=== PATIENT | female | born 1940 | race Caucasian/White ===

== ENCOUNTER 2016-10-10 13:31 | Inpatient (IN) | payer MEDICARE ==
[2016-10-10 13:56] VITALS: BP 134/81
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
[2016-10-10 15:04] LABS: % BASOPHILS 0.8 % (0.0-2.0); % EOSINOPHILS 2.2 % (0.0-5.0); % LYMPHOCYTES 16.2 % (20.0-50.0); % MONOCYTES 9.3 % (2.0-10.0); % NEUTROPHILS 71.5 % (40.0-80.0); HEMOGLOBIN 9.9 gm/dL (11.7-16.1); MEAN CELL VOLUME 78.2 fl (81-100); MEAN CORPUSCULAR HEMOGLOBIN 26.7 pg (27.0-31.0); MEAN CORPUSCULAR HGB CONC 34.1 pg (28.0-36.0); MEAN PLATELET VOLUME 8.6 fl; NEUTROPHILE ABSOLUTE 5.5 Th/cmm (1.8-8.0); RED BLOOD COUNT 3.72 Mil/cmm (3.80-5.20); RED CELL DISTRIBUTION WIDTH 13.5 % (11.5-20.0)
[2016-10-10 15:09] LABS: HEMATOCRIT 29.1 % (35.0-45.0); PLATELET COUNT 277 Th/cmm (150-400); WHITE BLOOD COUNT 7.8 Th/cmm (4.8-10.8)
[2016-10-10 15:23] LABS: ALB/GLOB RATIO 1.3 (1.0-1.8); ALKALINE PHOSPHATASE 75 U/L (34-104); ANION GAP 6.7 (7.0-16.0); BILIRUBIN,TOTAL 0.2 mg/dL (0.3-1.0); BUN - UREA NITROGEN 25 mg/dL (7-25); BUN/CREATININE RATIO 20.8; CALCIUM SERUM 8.7 mg/dL (8.6-10.3); CARBON DIOXIDE 28.2 mEq/L (21.0-31.0); CHLORIDE 110 mEq/L (98-107); CHOLESTEROL 149 mg/dL (<200); CREATININE - SERUM 1.2 mg/dL (0.6-1.2); GLUCOSE 95 mg/dL (70-105); POTASSIUM SERUM 3.9 mEq/L (3.5-5.1); SGOT 20 U/L (13-39); SGPT/ALT 21 U/L (7-52); SODIUM SERUM 141 mEq/L (136-145); TRIGLYCERIDES 145 mg/dL (<150)
[2016-10-10 15:37] LABS: URINE BILIRUBIN NEGATIVE (NEGATIVE); URINE BLOOD TRACE (NEGATIVE); URINE COLOR YELLOW; URINE GLUCOSE (UA) NEGATIVE (NEGATIVE); URINE KETONE NEGATIVE (NEGATIVE)
[2016-10-10 15:38] LABS: URINE PH 5.5; URINE PROTEIN NEGATIVE (NEGATIVE); URINE UROBILINOGEN 0.2 E.U./dL (0.2 - 1.0)
[2016-10-10 15:39] LABS: URINE BACTERIA NONE SEEN /hpf (NONE SEEN); URINE EPITHELIAL CELLS NONE SEEN /lpf (FEW); URINE RBC NONE SEEN /hpf (0-5); URINE WBC NONE SEEN /hpf (0-5)
[2016-10-10 15:41] LABS: ACETAMINOPHEN < 10.0 ug/mL (10.0-30.0)
[2016-10-10 15:48] LABS: AMPHETAMINE URINE NEGATIVE (NEGATIVE); BARBITURATES URINE NEGATIVE (NEGATIVE)
[2016-10-11 16:07] LABS: HEP B CORE IGM Negative (Negative); HEP C ANTIBODY <0.1 s/co ratio (0.0-0.9)
[2016-10-11] MEDS ORDERED: Sodium Chloride 0.9% 1,000 ML IV SCH (21:23)
[2016-10-11] MEDS ORDERED: Hydrocodone/APAP 5mg/325mg Tab PO ONE (21:35)
[2016-10-11 22:00] LABS: ALB/GLOB RATIO 1.2 (1.0-1.8); ALKALINE PHOSPHATASE 84 U/L (34-104); ANION GAP 6.7 (7.0-16.0); BILIRUBIN,TOTAL 0.3 mg/dL (0.3-1.0); BUN - UREA NITROGEN 27 mg/dL (7-25); BUN/CREATININE RATIO 15.9; CALCIUM SERUM 9.4 mg/dL (8.6-10.3); CARBON DIOXIDE 30.3 mEq/L (21.0-31.0); CHLORIDE 107 mEq/L (98-107); CHOLESTEROL 173 mg/dL (<200); CREATININE - SERUM 1.7 mg/dL (0.6-1.2); GLUCOSE 107 mg/dL (70-105); MAGNESIUM 2.5 mg/dL (1.9-2.7); SGOT 19 U/L (13-39); SGPT/ALT 21 U/L (7-52); SODIUM SERUM 140 mEq/L (136-145); TRIGLYCERIDES 135 mg/dL (<150)
[2016-10-11] MEDS ORDERED: oxyCODONE 5 mg IR Tab PO PRN (23:04)
[2016-10-12] MEDS: Dicyclomine 10 mg Cap PO SCH ×2 (08:29→16:42)
[2016-10-12] MEDS ORDERED: Levothyroxine 0.1 Mg Tab PO SCH (08:45)
[2016-10-12] MEDS ORDERED: Pantoprazole 40 mg EC Tab PO SCH (09:00)
[2016-10-12] MEDS ORDERED: LEVOTHYROXINE SODIUM 137 MCG PO SCH (09:00)
--- NOTE | 2016-10-12 10:26 | Diagnostic Imaging Report ---
CHEST X-RAY: AP view INDICATION: Shortness of breath, follow up COMPARISON: Chest x-ray 11/01/2015 FINDINGS: Hyperinflated lungs are seen with COPD changes. No focal consolidation or effusions. Heart size normal. Atherosclerosis is noted. Degenerative changes of the spine are noted. 2 cm radiodensity seen projecting along the right shoulder region. IMPRESSION: Hyperinflated lungs with COPD changes. No focal consolidation identified. Atherosclerotic vascular disease. 2 cm radiodensity, likely external material and probably clothing material along the right shoulder region. Please correlate clinically.
--- NOTE | 2016-10-12 12:35 | History & Physical ---
CHIEF COMPLAINT: Acute psychosis, confusion, increased anxiety. HISTORY OF PRESENT ILLNESS: This is a 76-year-old female with history of acid reflux disease/peptic ulcer disease, fibromyalgia, irritable bowel syndrome, anemia who was brought in to the ER for acute psychosis. Apparently, she has been under a lot of stress secondary to her son passing away about a year ago and it appears that there are also issues with her other family members including her and her 2 daughters. She was brought in by adventism members. Given her symptoms, is awaiting to be admitted to [facility]; however, beds were not available and now she has been admitted to the medical/surgical floor for further management and care. She currently denies any symptomatology except for the chronic pain, which is secondary to fibromyalgia. PAST MEDICAL HISTORY: As noted above and hypothyroidism. PAST SURGICAL HISTORY: Denies. SOCIAL HISTORY: Denies any tobacco, ETOH or illicit drug usage. ALLERGIES: NKDA. OUTPATIENT MEDICATIONS: Flexeril 10 b.i.d., Bentyl 10 mg b.i.d., Lasix 20 daily, levothyroxine 137 mcg daily, oxycodone 10 mg q. 8 p.r.n. for pain, Protonix 40 every day, ranitidine 150 q.p.m., Ambien 5 mg at bedtime, clonazepam 1 mg b.i.d. and 2 mg at bedtime, Atarax 25 mg once or twice a day. REVIEW OF SYSTEMS: CONSTITUTIONAL: She denies any fever or chills. She does report some weight loss over the last few months, unable to quantify. CARDIAC: No chest pain or palpitations. PULMONARY: No cough or phlegm production. GASTROINTESTINAL: Currently, no abdominal pain, no GI symptomatology. No GERD symptoms. GENITOURINARY: No bladder habit changes. NEUROLOGIC: Denies any headaches, any changes in vision, any syncope. PHYSICAL EXAMINATION: VITAL SIGNS: T-max is 99.1, pulse 80, BP 137/79, respirations 18-19, satting 97-98% on 2 liters. GENERAL: She is a well-developed, thin female. She is awake, mod disoriented, but able to answer very simple questions appropriately, although she is rambling and at times tangential. HEAD AND NECK: Normocephalic, atraumatic. Pupils reactive to light. Extraocular movements are intact. Oropharynx moist and clear. CARDIOVASCULAR: Regular rate and rhythm without any murmurs. LUNGS: Clear to auscultation bilaterally. ABDOMEN: Soft, supple, nontender, nondistended, normoactive bowel sounds. EXTREMITIES: Lower extremity, no edema, clubbing or cyanosis. NEUROLOGICAL: Grossly nonfocal. Cranial nerves 2-12 are within normal limits. LABORATORY DATA: White count 7.8, H and H 9/29, platelet count of 277. Sodium 141, potassium 3.9, chloride 110, CO2 28, BUN 25, creatinine 1.2, glucose 95. LFTs were essentially within normal limits. LDL 64, HDL 70 and TSH 0.31. UA was essentially within normal limits. U-tox was within normal limits. DIAGNOSTICS: EKG shows sinus rhythm at a rate of 82, no ST elevations or depressions. IMPRESSION: 1. Acute psychosis/confusion. 2. History of fibromyalgia with chronic pain syndrome. 3. History of acid reflux disease, currently stable. 4. History of irritable bowel syndrome, currently stable. 5. Anemia, uncertain. 6. History of hypothyroidism with a low TSH. 7. Mild azotemia. PLAN: The patient has been admitted to the medical floor with a 1:1 sitter. Given her possible dehydration and azotemia, I have started her on IV fluids. The patient will be kept on other medications as scheduled. Given lower TSH level, the patient's Synthroid will be lower to 100 mcg every day. Morgan magui has been asked for further management and care. JOB# [id number] [facility]
--- NOTE | 2016-10-12 13:52 | Admit Criteria Form ---
Admit Criteria Forms - Admit Criteria Diagnosis: DEHYDRATION Clinical Indications for Admission to Inpatient Care (Place 'X' for any and all applicable criteria): Admission is indicated for ANY ONE of the following (1)(2)(3)(4)(5): [X]I. Inpatient admission required rather than observation care (see Dehydration: Observation Care guideline as appropriate) because of ANY ONE of the following: [ ]a) Vomiting that is severe or persistent [ ]b) Severe electrolyte abnormalities requiring inpatient care [ ]c) Hemodynamic instability [ ]d) IV fluid to replace significant ongoing losses (greater than 3 L/m2 per day (10) (11) [ ]e) Parenteral nutrition regimen that must be implemented on inpatient basis [X]f) Other condition,treatment or monitoring requiring inpatient admission [ ]II. Serious cause for dehydration requiring acute hospitalization (eg, bowel obstruction, increased intracranial pressure, infectious cause) Extended stay beyond goal length of stay may be needed for(1)(3 )(4)(17): [ ]a) Chronic severe dehydration [ ]b) Persistent vital sign changes, severe electrolyte imbalance, or diagnosed cause of dehydration that requires continued hospitalization (eg, bowel obstruction, increased intracranial pressure) [ ]c) Older patients (65 years or older) [ ]d) Severe comorbid illness (eg, renal failure, heart failure, poorly controlled diabetes) The original [employer] content created by [employer] has been revised. The portions of the content which have been revised are identified through the use of italic text or in bold, and [facility] has neither reviewed nor approved the modified material. All other unmodified content is copyright [facility] [facility]. Please see references footnoted in the original [employer] [facility] edition 2016 Admit Criteria Met?: Yes
[2016-10-12] MEDS ORDERED: VTE Chemical Prophylaxis Screen/Admission MC PRN (16:49)
--- NOTE | 2016-10-16 21:41 | Discharge Summary ---
ADMITTING DIAGNOSES: Acute psychosis, confusion, anxiety. SECONDARY DIAGNOSES: Include history of hypothyroidism, chronic pain syndrome, fibromyalgia, history of irritable bowel syndrome, and history of chronic anemia. DISCHARGE DIAGNOSES: Acute psychosis, confusion, anxiety. RN [facility]: Dr. Quiñones, Psychiatry. MAJOR PROCEDURES: There were no major procedures done during this admission. TRANSFER/DISCHARGE MEDICATIONS: Flexeril 10 b.i.d., Bentyl 10 mg b.i.d., Lasix 20 daily, levothyroxine 137 mcg q.a.m., oxycodone 10 mg q.8 hours p.r.n. for severe pain, Protonix 40 q.a.m., ranitidine 150 q.p.m., ambien 5 mg at bedtime, Klonopin 1 mg b.i.d. and 2 mg at bedtime, atarax 25 mg p.r.n. for itching. BRIEF HOSPITAL COURSE: A 76-year-old lady with a past medical history as delineated above who apparently has been having stress-related psychosis at home to the point that she was brought in by friends to get admitted to [facility]. She was initially admitted to the medical floor, where she was monitored and remained stable throughout her hospital stay. She was evaluated by Psychiatry and was transferred to [facility] the next day. Medically speaking, she remains stable with normal vital signs and stable labs. Her initial thyroid screen showed a low TSH; therefore, her thyroid supplements were adjusted. CONDITION ON TRANSFER: Stable. DISPOSITION: The patient was transferred to [facility] under Dr. Quiñones's service. JOB# [id number] [facility]
== END 2016-10-12 17:39 | disposition short-term general hospital (02) | DRG 641 ==
LOC: ER 13:31 → MSI 10-11 21:40
PROVIDERS: ADMIT Internal Medicine; ATTEND Internal Medicine
DX: E86.0 Dehydration (principal); D64.9 Anemia, unspecified; E03.9 Hypothyroidism, unspecified; M79.7 Fibromyalgia; K21.9 Gastro-esophageal reflux disease without esophagitis; K58.9 Irritable bowel syndrome, unspecified; G89.4 Chronic pain syndrome; F29 Unspecified psychosis not due to a substance or known physiological condition
CPT/HCPCS: 36415-UA; 71010-TC; 80053-TC; 80061-TC; 80074-90; 80320-TC; 80329-TC; 81001-TC; 83735-TC; 84443-TC; 85025-TC; 86592-TC; 93005; J7030; Z7610

== ENCOUNTER 2016-10-12 17:40 | Inpatient (IN) | payer MEDICARE ==
[2016-10-12 19:19] VITALS: BP 144/80
--- NOTE | 2016-10-12 23:35 | Consultation ---
IDENTIFYING INFORMATION: The patient is 76-year-old female. REASON FOR CONSULTATION AND HISTORY OF PRESENT ILLNESS: The patient was admitted on the hold and trying to find a hold. The ____ tell me the patient is on a 5150 hold. The hold is for grave disability. It states that the patient stated that she is homeless, she was staying in a hotel previously, run out of money and now plans to live on the streets; however, the patient cannot verbalize a plan for her safety or hard to obtain food, clothing, or senior living. When I talked to her, she was a reasonable historian. The patient reports that she has not seen her . She left pug-eek-u-half weeks ago. She report previously she was at ____ [facility] on a hold again, she has shown me a list of her medication included the Klonopin, hydroxyzine. The patient reported that she sleeps well, eats well. She denies any current intent to harm herself or anybody. Denies any auditory or visual hallucination. She was paranoid towards her , she said her adopted daughter is trying to take over their house and that she is the one who reported that the patient was trying to harm her according to Emergency Room notes that the patient may have tried to harm her , the patient denies that. She denies any intent to harm herself or anybody. PAST PSYCHIATRIC HISTORY: The patient reports she was seen by a psychiatrist before, she is on Klonopin, hydroxyzine and Ambien. The patient reports that she never tried to harm herself or anybody, never been hospitalized. She report that she was brought here by zoroastrianism people, she is not sure what they said, but she report that she loves the zoroastrianism that is why she is there. MEDICAL HISTORY: The patient has hypothyroidism. She has chronic pain. ALLERGIES: SHE SAID SHE IS ALLERGIC TO ALL PAIN MEDICATION EXCEPT HYDROCODONE. FAMILY AND SOCIAL HISTORY: The patient was ____40 years, she have one of the biologic son that nam-qyb-y-half year ago for an overdose on his gout medication. She has 3 adopted children. 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 She reports her is 76 years of age. She is not happily . He refused to take his ADD medication and has been causing problem. She reports her adopted daughter trying to take over their house. I am not sure if how sure she is of this information. She denies any family psychiatric disorder or substance abuse. MENTAL STATUS EXAMINATION: The patient is homeless, admits that the patient was appropriately dressed, not well groomed. Her mood is depressed. Affect is constricted. Her thoughts are a little bit at times concrete. She was alert, oriented to place, person, and time, but not to situation. She is unable to explain to me why they put her on a hold. Her long-term memory is good for her age. ____ at the beginning, she told me she was 75, but after she told me the date and her date of , she was able to figure out her age. She seems to have average intelligence. Her long-term is good for her age. Recent memory is poor, cannot remember events after coming here. Her insight and judgment is questionable. IMPRESSION: AXIS I: Rule out psychosis, not otherwise specified versus depression with psychosis, also cognitive disorder, not otherwise specified. PLAN: I would recommend the patient needs to be transferred to a psych unit when medically cleared. To further evaluate the patient to assess her medication. Thank you very much for allowing me to participate in the care of this most interesting lady. JOB# [id number]
[2016-10-13] MEDS: Levothyroxine 0.1 Mg Tab PO SCH (06:39)
[2016-10-13] MEDS: Dicyclomine 10 mg Cap PO SCH ×2 (09:40→16:56)
[2016-10-13] MEDS: Pantoprazole 40 mg EC Tab PO SCH (09:40)
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
--- NOTE | 2016-10-14 00:04 | Consultation ---
INTERNAL MEDICINE CONSULTATION ATTENDING PHYSICIAN: Lissa Quiñones M.D. DENTAL NURSE: Alex Syed M.D. HISTORY OF PRESENT ILLNESS: This is a 76-year-old female with past medical history of psychosis, who was transferred from [facility] to [facility] for continuation of psychiatric management. The patient was admitted at [facility] for severe dehydration. She was started on IV fluids. Her condition improved and she was transferred to [facility]. PAST MEDICAL HISTORY: 1. Psychosis. 2. Hypothyroidism. 3. Gastritis. 4. Chronic pain syndrome. 5. Anxiety/depression. CURRENT MEDICATIONS: She is currently on acetaminophen, cyclobenzaprine, dicyclomine, famotidine, furosemide, levothyroxine, lorazepam, pantoprazole, zolpidem, clonazepam, hydroxyzine, oxycodone. ALLERGIES: No known drug allergies. SOCIAL AND FAMILY HISTORY: I was not able to obtain directly from the patient because of her depressed mental status. REVIEW OF SYSTEMS: Again, I was not able to obtain from the patient. However, per transfer notes, CONSTITUTIONAL: Appetite had been poor, no fever, no chills. HEENT: No mention of headaches, no dizziness. CARDIORESPIRATORY: No mention of chest pain, palpitations, diaphoresis, cough. No shortness of breath. GASTROINTESTINAL: She has a history of gastritis. At this point, no nausea, vomiting, abdominal pain or cramping, hematemesis, melena, hematochezia, no diarrhea. ENDOCRINE: No history of diabetes, but has hypothyroidism. MUSCULOSKELETAL: Multiple joint arthralgias. GENITOURINARY: No history of kidney failure. HEMATOLOGIC: No history of anemia. NEUROPSYCHIATRIC: History of acute decompensation of psychosis, anxiety as well as depression. PHYSICAL EXAMINATION: NEUROLOGIC: The patient is drowsy, but arousable, not in any form of distress. VITAL SIGNS: Blood pressure is 110/70, pulse 86, temperature 97.8 degrees. SKIN: Good turgor, warm, no rash, no jaundice appreciated. HEENT: Head: Normocephalic, atraumatic. Eyes: Extraocular muscles intact. Pupils equal, round, reactive to light and accommodates. Anicteric sclerae. [place] conjunctivae. Nose: Midline nasal septum. Mouth: Dry mucosa with adequate dentition. NECK: Supple. No adenopathy, no thyromegaly, no bruits. Trachea palpated in the midline. CHEST AND CVS: S1, S2. No rub, murmur, no gallop appreciated. Point of maximal impulse is in fifth intercostal space, left midclavicular line. No abdominal or femoral bruits appreciated. LUNGS: Equal expansion. No use of accessory muscles. No supraclavicular retractions. Decreased breath sounds. Clear to auscultation without any wheeze. ABDOMEN: Flat, soft, positive for bowel sounds. No bruits either diastolic or systolic. RECTAL: The patient refused. GENITOURINARY: She also refused. MUSCULOSKELETAL: Unable to assess her range of motion. EXTREMITIES: No evidence of any edema, cyanosis or clubbing with palpable femoral, but unable to appreciate popliteal and dorsalis pedis pulses. NEUROLOGIC: As mentioned, the patient is somewhat drowsy at the present time, unable to follow my neuro commands, so I was unable to pursue further my neuro exam. LABORATORY DATA: No labs available. IMPRESSION: 1. Acute decompensation of psychosis. 2. Hypothyroidism. 3. Gastritis. 4. Chronic pain syndrome. 5. Anxiety/depression. PLAN: 1. Discontinue Lasix. The patient has recent history of dehydration. 2. Follow up electrolytes and TSH. 3. Continue on the psychiatric medications. Thank you, Dr. Quiñones, for this consult. I will follow the patient closely with you. JOB# [id number]
[2016-10-14] MEDS: Levothyroxine 0.1 Mg Tab PO SCH (06:45)
[2016-10-14 07:02] LABS: % MONOCYTES 10.6 % (2.0-10.0); % NEUTROPHILS 53.4 % (40.0-80.0); HEMATOCRIT 30.4 % (35.0-45.0); HEMOGLOBIN 10.3 gm/dL (11.7-16.1); MEAN CELL VOLUME 78.2 fl (81-100); MEAN CORPUSCULAR HEMOGLOBIN 26.5 pg (27.0-31.0); MEAN CORPUSCULAR HGB CONC 33.9 pg (28.0-36.0); MEAN PLATELET VOLUME 8.2 fl; NEUTROPHILE ABSOLUTE 3.8 Th/cmm (1.8-8.0); PLATELET COUNT 282 Th/cmm (150-400); RED BLOOD COUNT 3.89 Mil/cmm (3.80-5.20); RED CELL DISTRIBUTION WIDTH 13.3 % (11.5-20.0); WHITE BLOOD COUNT 7.2 Th/cmm (4.8-10.8)
[2016-10-14 07:14] LABS: ALB/GLOB RATIO 1.2 (1.0-1.8); ALKALINE PHOSPHATASE 65 U/L (34-104); BILIRUBIN,TOTAL 0.3 mg/dL (0.3-1.0); BUN - UREA NITROGEN 40 mg/dL (7-25); BUN/CREATININE RATIO 28.6; CALCIUM SERUM 9.1 mg/dL (8.6-10.3); CARBON DIOXIDE 30.7 mEq/L (21.0-31.0); CHLORIDE 104 mEq/L (98-107); CREATININE - SERUM 1.4 mg/dL (0.6-1.2); GLUCOSE 91 mg/dL (70-105); POTASSIUM SERUM 4.7 mEq/L (3.5-5.1); SGOT 11 U/L (13-39); SGPT/ALT 12 U/L (7-52); SODIUM SERUM 136 mEq/L (136-145)
[2016-10-14] MEDS: Pantoprazole 40 mg EC Tab PO SCH (08:36)
[2016-10-14] MEDS: Dicyclomine 10 mg Cap PO SCH ×2 (08:37→16:08)
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
[2016-10-15] MEDS: Levothyroxine 0.1 Mg Tab PO SCH (06:40)
[2016-10-15] MEDS: Pantoprazole 40 mg EC Tab PO SCH (08:21)
[2016-10-15] MEDS: Dicyclomine 10 mg Cap PO SCH ×2 (08:21→16:49)
[2016-10-15] MEDS ORDERED: Haloperidol Lactate 5 mg/mL 1mL Vial ONE (17:55)
[2016-10-15] MEDS ORDERED: Haloperidol Lactate 5 mg/mL 1mL Vial IM ONE (17:57)
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
[2016-10-16] MEDS: Levothyroxine 0.1 Mg Tab PO SCH (06:51)
[2016-10-16] MEDS: Pantoprazole 40 mg EC Tab PO SCH (08:21)
[2016-10-16] MEDS: Dicyclomine 10 mg Cap PO SCH ×2 (08:21→17:03)
--- NOTE | 2016-10-16 21:01 | Progress Notes ---
Case was discussed with staff of the patient, reviewed records. The patient so far has been easily agitated, trying to . She continues to be unpredictable and impulsive. She has very poor insight about the whole situation. I tapered off the Klonopin. I added the Neurontin yesterday to help with her anxiety and to make it easy to get to us. JOB# [id number]
[2016-10-17] MEDS: Levothyroxine 0.1 Mg Tab PO SCH (06:49)
[2016-10-17] MEDS: Dicyclomine 10 mg Cap PO SCH ×2 (08:43→16:09)
[2016-10-17] MEDS: Pantoprazole 40 mg EC Tab PO SCH (08:44)
--- NOTE | 2016-10-18 04:21 | Progress Notes ---
Case was discussed with staff of the patient, reviewed records. The patient is working with the staff on placement. I explained to the patient that she going to a motel does not seem to be a good choice, and then we need to think of something else. She has a lot of legal issues she is working on. She has been compliant with the medication with no side effects. She agreed finally to work to, maybe go, with a friend, however, also suggested nursing facility or assisted living. She is compliant with the medication with no side effects. We are trying to taper off the Klonopin and so far no side effects from the medication, no sedation, no nausea, and we will continue to work with the patient in group therapy, milieu therapy, and adjust medications as needed. JOB# [id number]
[2016-10-18 06:38] LABS: ANION GAP 4.8 (7.0-16.0); BUN - UREA NITROGEN 34 mg/dL (7-25); BUN/CREATININE RATIO 30.9; CARBON DIOXIDE 31.4 mEq/L (21.0-31.0); CHLORIDE 102 mEq/L (98-107); CREATININE - SERUM 1.1 mg/dL (0.6-1.2); GLUCOSE 92 mg/dL (70-105); MAGNESIUM 2.3 mg/dL (1.9-2.7); POTASSIUM SERUM 4.2 mEq/L (3.5-5.1); SODIUM SERUM 134 mEq/L (136-145)
[2016-10-18] MEDS: Levothyroxine 0.1 Mg Tab PO SCH (06:49)
[2016-10-18] MEDS: Dicyclomine 10 mg Cap PO SCH ×2 (09:12→16:23)
[2016-10-18] MEDS: Pantoprazole 40 mg EC Tab PO SCH (09:12)
--- NOTE | 2016-10-19 05:58 | Progress Notes ---
Case was discussed with staff of the patient, reviewed records. The patient apparently has been very disorganized with flight of ideas. Continues to be unable to make safe plan for self-care. Continues to be unpredictable and impulsive. She is unable to make definite plans for her self-care. I will be working on placement for her because she believes she can go and live in a motel; she did threaten her . I will be initiating Risperdal to help improve her thoughts and mood swings and irritability; discussed side effects. She is still at risk for discharge because of her unpredictable behavior, and we will continue to work with the patient in group therapy, milieu therapy, and adjust the medication as needed. [facility]# [id number]
[2016-10-19] MEDS: Levothyroxine 0.1 Mg Tab PO SCH (06:44)
[2016-10-19] MEDS: Dicyclomine 10 mg Cap PO SCH ×2 (09:30→16:58)
[2016-10-19] MEDS: Pantoprazole 40 mg EC Tab PO SCH (09:30)
--- NOTE | 2016-10-20 02:28 | Progress Notes ---
Case was discussed with staff of the patient, reviewed records. The patient continues to be disorganized, confused at times, very poor insight. Continues to be unpredictable, impulsive, needing redirection, and working on placement for this patient, so she is compliant with the medication with no side effects, no sedation, no nausea, no extrapyramidal symptoms. We will continue to work with the patient in group therapy, milieu therapy, and adjust medication as needed. JOB# [id number]
[2016-10-20] MEDS: Levothyroxine 0.1 Mg Tab PO SCH (06:52)
[2016-10-20] MEDS: Dicyclomine 10 mg Cap PO SCH ×2 (09:06→18:16)
[2016-10-20] MEDS: Pantoprazole 40 mg EC Tab PO SCH (09:07)
--- NOTE | 2016-10-20 20:44 | Progress Notes ---
Case was discussed with staff of the patient, reviewed records. The patient apparently wrote a letter. Apparently a few days ago, she asked to change doctor to Dr. Fernandez who the staff told me they gave him some letter and they asked him, however, he refused to accept the patient. The patient continues to be unpredictable and impulsive. She complained of soreness in her throat. I asked the staff to give her lozenges and to see if they could get the medical doctor to evaluate her and treat her and so far no side effects with the medication, no sedation, no nausea, and no extrapyramidal symptoms. We will continue to work with the patient in group therapy, milieu therapy, and adjust medications. I asked the staff to give her lozenges to help her with her throat. Her lab work showed low sodium level and high CO2, high BUN, and the rest within normal range. TSH within normal range. We will continue to work with the patient in group therapy, milieu therapy, and adjust medication as needed. JOB# [id number]
[2016-10-21] MEDS: Levothyroxine 0.1 Mg Tab PO SCH (06:47)
[2016-10-21] MEDS: Dicyclomine 10 mg Cap PO SCH ×2 (09:24→16:18)
[2016-10-21] MEDS: Pantoprazole 40 mg EC Tab PO SCH (09:24)
--- NOTE | 2016-10-22 03:25 | Progress Notes ---
Case discussed with staff of the patient. The patient is complaining of sore throat and she said she is supposed to be on antibiotics. She is still having difficulty with swallowing. She was started on Zithromax yesterday ____. She has been compliant with the medication with no side effects, no sedation, no nausea, no extrapyramidal symptoms. She continues to be somewhat disorganized, unpredictable, impulsive. I discussed with the patient that she could change her ____ at time and that we have asked Dr. Fernandez ____ to take care of her; however, I asked her to feel free to chose any other psychiatrists she wishes and working on placement for this patient as well and we will continue to observe the patient in group therapy, milieu therapy, adjust the medication as needed. JOB# [id number]
[2016-10-22] MEDS: Levothyroxine 0.1 Mg Tab PO SCH (06:37)
[2016-10-22] MEDS: Pantoprazole 40 mg EC Tab PO SCH (08:41)
[2016-10-22] MEDS: Dicyclomine 10 mg Cap PO SCH ×2 (08:41→16:25)
--- NOTE | 2016-10-23 01:42 | Progress Notes ---
Case was discussed with the staff of the patient, reviewed records. The patient is a bit calmer. I discussed again with her that she needs to realize that she does have a choice of her doctors, and since Dr. Fernandez refused to take care that she is free any choose any other doctors, she does not want me to be her psychiatrist and so far she has been more compliant with the medication with no side effects, still somewhat disorganized. I am sure she can make safe plan for self-care, but we are working on placement for this patient, so she can go to a safe place as I do not think she can manage on her own. She plans to go to a hotel, [employer] [address], and she does not have really that much money. This will run out in no time and then she will be homeless, and at this point no side effects with the medications, no sedation, no nausea, no extrapyramidal symptoms. The patient was started on antibiotic and she is on pain medication and no side effects with the medication, no sedation, no nausea, no extrapyramidal symptoms. I will be decreasing her Klonopin 0.25 mg twice a day and I do have her on Neurontin to make sure she can tolerate the withdrawal because I am not sure at her age I want her to be on a regular dose of benzodiazepine and we will continue to work with the patient In group therapy, milieu therapy, adjust medications as needed. JOB# [id number]
[2016-10-23] MEDS: Levothyroxine 0.1 Mg Tab PO SCH (06:36)
[2016-10-23] MEDS: Dicyclomine 10 mg Cap PO SCH ×2 (09:16→17:07)
[2016-10-23] MEDS: Pantoprazole 40 mg EC Tab PO SCH (09:17)
--- NOTE | 2016-10-23 20:16 | Progress Notes ---
Case was discussed with staff of the patient, reviewed records. The patient continues to work on her placement. Continues to be disorganized, impulsive, and unpredictable. Continues to need redirection. She has been compliant with the medication with no side effects, no sedation, no nausea, and no extrapyramidal symptoms. Continues with disorganized behavior, very poor insight, and unable to make a judgment. I will be increasing Risperdal to 1 mg twice a day. Also, I have been decreasing her Klonopin to 0.25 mg twice a day and so far no side effects, no sedation, no nausea, no extrapyramidal symptoms, and working on placement. We will continue to work with the patient in group therapy, milieu therapy, and adjust the medications as needed. JOB# [id number]
[2016-10-24] MEDS: Levothyroxine 0.1 Mg Tab PO SCH (06:37)
[2016-10-24] MEDS: Pantoprazole 40 mg EC Tab PO SCH (09:08)
[2016-10-24] MEDS: Dicyclomine 10 mg Cap PO SCH ×2 (13:41→17:59)
--- NOTE | 2016-10-25 01:35 | Progress Notes ---
Case was discussed with staff of the patient, reviewed records. The patient continues to be vague at times, disorganized, and internally preoccupied. She is not willing to work with the staff on placement. She said she will go to a friend. Then, one of the staff members is going to help her talk to one of her friends. She continues to be having ____ poor insight, but in general if we can find her a place, that will be safe. We can have her leave because her plans so far is unrealistic where she wants to go to a motel when she does not have any money. So, she will end up on the street and ____ exposing herself to danger. I will be changing her Klonopin to twice a day as needed and I discussed with the patient that this medication can be adjusted, and I will be increasing her Neurontin dose to 200 mg 3 times a day to help her with the detox process. We will continue to work with the patient in group therapy, milieu therapy, and adjust the medication as needed. JOB# [id number]
[2016-10-25] MEDS: Levothyroxine 0.1 Mg Tab PO SCH (06:37)
[2016-10-25] MEDS: Dicyclomine 10 mg Cap PO SCH ×2 (09:08→17:46)
[2016-10-25] MEDS: Pantoprazole 40 mg EC Tab PO SCH (09:09)
[2016-10-25] MEDS: Docusate Sodium/Senna Tab PO SCH ×2 (12:30→17:45)
--- NOTE | 2016-10-26 01:48 | Progress Notes ---
Case was discussed with staff of the patient and reviewed records. The patient is complaining of feeling shaky today, feeling weak, tired. I did take her off the clonidine yesterday and increased the Neurontin dose. So, I will be going down on the dose of gabapentin and the Risperdal. Also, the Neurontin dose will go down to as it was to 100 mg 3 times a day and so far I asked the staff to check her vital signs and I asked the patient to stay in bed and asked them to call the medical doctor to make sure to examine her and make sure she is okay and I will ____ in group therapy, milieu therapy and adjust medication as needed. JOB# [id number]
[2016-10-26] MEDS: Levothyroxine 0.1 Mg Tab PO SCH (06:39)
[2016-10-26] MEDS: Docusate Sodium/Senna Tab PO SCH ×2 (08:16→16:41)
[2016-10-26] MEDS: Dicyclomine 10 mg Cap PO SCH ×2 (08:16→16:41)
[2016-10-26] MEDS: Pantoprazole 40 mg EC Tab PO SCH (08:17)
--- NOTE | 2016-10-27 00:13 | Progress Notes ---
Case was discussed with staff of the patient, reviewed records. The patient is still in the process of trying to find her a place to go. Apparently, her friends who she gave the name for declined to have her. The patient continues to have poor insight, unable to participate, make safe plan for her self-care. Her plans are not making sense, she cannot be safe on the streets, in a hotel with friends who do not want her. She has been compliant with the medication. I did decrease the Risperdal and Neurontin dose by half and also took off the Klonopin and so far, no side effects with the medication, no sedation, no nausea. I will be making the Risperdal only at bedtime and we will continue to work with the patient in group therapy, milieu therapy, adjust medication as needed. JOB# [id number]
[2016-10-27] MEDS: Levothyroxine 0.1 Mg Tab PO SCH (06:41)
[2016-10-27] MEDS: Docusate Sodium/Senna Tab PO SCH ×2 (08:13→16:46)
[2016-10-27] MEDS: Dicyclomine 10 mg Cap PO SCH ×2 (08:13→16:45)
[2016-10-27] MEDS: Pantoprazole 40 mg EC Tab PO SCH (08:13)
--- NOTE | 2016-10-28 04:26 | Progress Notes ---
Covering for Dr. Quiñones. IDENTIFYING DATA: Overnight staff members reported that the patient overall continues to be easily agitated with very poor self care plan. Today, on [id number] evaluation, the patient is noted to be tearful, agitated, irritable, refusing to be interviewed and making hand gestures not to be interviewed due to the patient's agitated and aggressiveness and declined to be interviewed, unable to participate and engage ____ information that will facilitate her how to care for her self plan. MENTAL STATUS EXAMINATION: Tearful, withdrawn, sad and ____. ASSESSMENT AND PLAN: The patient is 76-year-old female who still continues to present disorganized, tearful and unable to make a clear plan on how to care for herself after-discharge plan. Therefore, will continue with the current primary psychiatrist treatment plan and goals to target the patient's severe symptoms. We will continue with the ____ lisinopril, risperidone 0.5 mg a day. [facility]# [id number]
[2016-10-28] MEDS: Levothyroxine 0.1 Mg Tab PO SCH (06:45)
[2016-10-28] MEDS: Pantoprazole 40 mg EC Tab PO SCH (09:29)
[2016-10-28] MEDS: Dicyclomine 10 mg Cap PO SCH ×2 (09:29→16:47)
[2016-10-28] MEDS: Docusate Sodium/Senna Tab PO SCH ×2 (09:30→16:42)
--- NOTE | 2016-10-29 01:55 | Progress Notes ---
SUBJECTIVE: The patient is seen. Chart reviewed. Discussed with staff. The patient is currently in the hospital, noted to be disorganized, gravely disabled, on [id number]. The patient remains agitated, irritable, poor self-care planning, poor self-care, resistant to care, noted to be demanding, depressed, med seeking. She is more linear at this time. States that she wants to go home; also states she has a daughter there; however, there are continued concerns about the patient's demeanor and her affect. ASSESSMENT: The patient remains somewhat tearful, upsets, but more linear. PLAN: We will continue to monitor, continue to adjust medications. The patient is not the best historian, but notes that she has a psychiatric history. She is somewhat guarded on exam. We will coordinate care with social work regarding safe discharge plan and good psychiatric followup. JOB# [id number] [facility]
[2016-10-29] MEDS: Levothyroxine 0.1 Mg Tab PO SCH (07:02)
[2016-10-29] MEDS: Dicyclomine 10 mg Cap PO SCH ×2 (09:30→17:15)
[2016-10-29] MEDS: Pantoprazole 40 mg EC Tab PO SCH (09:30)
[2016-10-29] MEDS: Docusate Sodium/Senna Tab PO SCH ×2 (09:31→17:18)
--- NOTE | 2016-10-29 23:41 | Progress Notes ---
Case was discussed with staff of the patient. The patient continues to minimize events led to her admission. She continues to be working with the staff. The staff is having hard time placing her. She has been compliant with the medications. She denies any current side effects. No sedation, no nausea, and no extrapyramidal symptoms. I did decrease the Risperdal because of the complaint. She continues to be disorganized. Continues to be agitated and irritable. However, she would not take the medication ____ increased dose. I am working on placement. We will continue to work with the patient in group therapy, milieu therapy, and adjust medication as needed. JOB# [id number]
[2016-10-30] MEDS: Levothyroxine 0.1 Mg Tab PO SCH (06:35)
[2016-10-30] MEDS: Pantoprazole 40 mg EC Tab PO SCH (09:08)
[2016-10-30] MEDS: Docusate Sodium/Senna Tab PO SCH ×2 (09:08→17:23)
[2016-10-30] MEDS: Dicyclomine 10 mg Cap PO SCH ×2 (09:08→17:23)
--- NOTE | 2016-10-31 01:24 | Progress Notes ---
Case was discussed with staff of the patient, reviewed records. The patient has been compliant with the medications; however, she has been at times paranoid. She believes some of the male peer has been coming to her bed. However, the staff reported that this did not happen and that they watched the room today well. They do not allow any male to go to females' room. The patient so far has been compliant with the medication with no side effects, no sedation, and no nausea. We are still working on placement for this patient and the field nurse case manager has 2 people. They are going to with the hope that she will be placed in a safe environment. I will continue to work with the patient in group therapy, milieu therapy, and adjust the medications as needed. JOB# [id number]
[2016-10-31] MEDS: Levothyroxine 0.1 Mg Tab PO SCH (06:43)
[2016-10-31] MEDS: Dicyclomine 10 mg Cap PO SCH ×2 (08:26→16:27)
[2016-10-31] MEDS: Pantoprazole 40 mg EC Tab PO SCH (08:26)
[2016-10-31] MEDS: Docusate Sodium/Senna Tab PO SCH ×2 (08:26→16:27)
--- NOTE | 2016-11-01 03:56 | Progress Notes ---
Case was discussed with staff of the patient, reviewed records. We will continue to work on placement for this patient as she does not have any place to go and it has been hard to place her because the patient has been ____. Also, they are working on making sure she is in a safe place, but she is compliant now with the medications with no side effects. She is not paranoid. She is sleeping better, eating better. No side effects with the medications, no sedation, no nausea, no extrapyramidal symptoms, and she responded better to redirection. We will continue to work with the patient in group therapy, milieu therapy, adjust medications as needed. JOB# [id number]
[2016-11-01] MEDS: Levothyroxine 0.1 Mg Tab PO SCH (06:41)
[2016-11-01] MEDS: Docusate Sodium/Senna Tab PO SCH (08:12)
[2016-11-01] MEDS: Dicyclomine 10 mg Cap PO SCH (08:12)
[2016-11-01] MEDS: Pantoprazole 40 mg EC Tab PO SCH (08:12)
--- NOTE | 2016-11-01 22:41 | Discharge Summary ---
IDENTIFYING INFORMATION: The patient is a 76-year-old female. REASON FOR THE ADMISSION: The patient was transferred from the medical floor. I saw her there. She was admitted on a hold. The hold was for grave disability. She was homeless. She was staying in a hotel, she ran out of money, planned to live on the streets; however, the patient cannot verbalize the plan of safety, was hard to obtain food or closing or senior care. When I talked to her, she was a reasonable historian. She reported that she has not seen her . She left home 1-1/2 weeks prior. She apparently threatened her . She was at [facility] on hold. She had shown me a list of medications including Klonopin, hydroxyzine. The patient reports she sleeps well, she eats well. She denies any current intent to harm herself or anybody; however, she was very disorganized. She is paranoid ____. The patient reports she was seen by a psychiatrist before, she was on Klonopin, hydroxyzine, Ambien. She never tried to harm herself or anybody before; however, there was a hold for danger to others, ____ she tried to harm her ____ been hospitalized. She reports that she was brought here by ____ people. The patient was allergic to pain medication except hydrocodone. COURSE IN THE HOSPITAL: The patient was started on Neurontin and I took her off the addictive medication and I gave her Neurontin 300 mg twice a day, but later that was decreased to 100 mg 3 times a day ____ after that, because of her disorganized behavior, paranoia, I started Risperdal, increased to 1 mg twice a day, later decreased to 0.5 mg twice a day because of her feeling restless. The patient was continued with hydroxyzine as needed and the patient also was continued with Phenergan as needed, ____, Protonix, lisinopril, levothyroxine, ____, dicyclomine, and Flexeril. The patient with hard time finding a placement for her; however, while finding, we found an assisted living for her in [place] and she was willing to go ____ as she improved, when she has a safe place to go to, we felt she could be discharged to a lesser level of care. FINAL DIAGNOSIS: AXIS I: Psychosis, not otherwise specified; generalized anxiety disorder. MEDICAL DIAGNOSES: Fibromyalgia, hypothyroidism, gastritis, chronic pain. The patient will be going to [place] at [facility] and care in [place], will follow up with a psychiatrist, primary care physician, and therapist. EXPECTED OUTCOME: Stable if the patient complies with the above. JOB# [id number]
== END 2016-11-01 12:00 | DRG 885 ==
LOC: GERO 17:40
PROVIDERS: ADMIT Psychiatry & Neurology Psychiatry; ATTEND Psychiatry & Neurology Psychiatry
DX: F29 Unspecified psychosis not due to a substance or known physiological condition (principal); E03.9 Hypothyroidism, unspecified; F41.9 Anxiety disorder, unspecified; F41.1 Generalized anxiety disorder; M79.7 Fibromyalgia; G89.4 Chronic pain syndrome; K29.70 Gastritis, unspecified, without bleeding; K58.9 Irritable bowel syndrome, unspecified; Z88.6 Allergy status to analgesic agent; Z59.0 Homelessness
CPT/HCPCS: 36415-UA; 80048-TC; 80053-TC; 83735-TC; 84443-TC; 85025-TC; 90899; G0410; J1200; J1630; Z7610